=== PATIENT | female | born 1985 | race Caucasian/White ===

== ENCOUNTER → 2021-03-24 | Outpatient (CLI) | payer OTHER ==
[~2021-03-24] MED LIST: GASTROGRAFIN SOLUTION 30ML (Q9963) ONE; ISOVUE-370 76% 100ML VIAL ONE
--- NOTE | 2021-03-24 12:20 | REP ---
INDICATION: MIXED IBS. COMPARISON: 12/03/2012 TECHNIQUE: Axial contrast-enhanced images from the lung bases to the pubic symphysis using oral and 100 cc Isovue 370 intravenous contrast material. Delayed images of the abdomen along with coronal and sagittal reformations obtained. This CT examination was performed using the following dose reduction techniques: Automated exposure control, adjustment of mA and/or kv according to the patient's size, and the use of iterative reconstruction technique. FINDINGS: Liver demonstrates fatty infiltration without focal hepatic lesion. Evidence for prior cholecystectomy. Spleen, pancreas, gallbladder, bilateral adrenal glands and kidneys are normal.Incidental subcentimeter simple left renal cyst noted. The enteric system including stomach, small, and large bowel appears normal. No evidence for obstruction or acute inflammatory process. Normal terminal ileum and appendix are identified in the right lower quadrant. Few sigmoid diverticula noted without acute diverticulitis. Pelvis demonstrates normal bladder and evidence for prior hysterectomy. No ascites. No free air. No intraperitoneal or retroperitoneal adenopathy. Abdominal aorta and vasculature appear normal. Musculoskeletal structures are intact and without acute osseous abnormality. IMPRESSION: No acute abdominopelvic pathology appreciated. Hepatosteatosis. Few scattered sigmoid diverticula without acute diverticulitis. <Electronically signed by Antonio Pierre > 03/24/21 [id number]
== END ==
LOC: M PLAIMG 09:30
PROVIDERS: ATTEND Internal Medicine Gastroenterology
DX: K76.0 Fatty (change of) liver, not elsewhere classified (principal); K57.30 Diverticulosis of large intestine without perforation or abscess without bleeding; K58.2 Mixed irritable bowel syndrome; K56.601 Complete intestinal obstruction, unspecified as to cause
CPT/HCPCS: 74177; Q9963; Q9967

== ENCOUNTER 2023-02-05 13:23 | Day surgery (SDC) | payer OTHER ==
[~2023-02-05] VITALS: Ht 154.9 cm; Wt 94.4 kg
[~2023-02-05 13:23] MED LIST changes: +ACET325C5 PO; +AIMO70IN2; +FEXO-117; +FIOR1CAP PO; -GASTROGRAFIN SOLUTION 30ML (Q9963) ONE; +HYDR-3363; +IBUP80TA PO; -ISOVUE-370 76% 100ML VIAL ONE; +LEVO75TA4; +LEXA1TAB2 PO; +LIDOCAINE 2% 100MG/5ML SDV (FOR ANES.) As Ordered ONE; +LISI10TA22; +MIDAZOLAM INJ 2MG/2ML VIAL As Ordered ONE; +ONDA-84; +ONDANSETRON 4MG 2ML VIAL As Ordered ONE; +PANT20TA6; +ROCURONIUM BROMIDE 50MG/5ML VIAL As Ordered ONE; +TIZA2TA; +ceFAZolin SOD 2 GM in IV 1 EA IV ONE; +fentaNYL 100 MCG/2 ML INJECTION As Ordered ONE; +propofoL 200 MG/20 ML VIAL As Ordered ONE
[2023-02-05] MEDS ORDERED: KETOROLAC 60MG 2ML VIAL As Ordered ONE (13:26)
[2023-02-05 14:08] LABS: HEMATOCRIT 39.4 % (36.0-47.0); HEMOGLOBIN 13.6 g/dl (12.0-15.5); MEAN CORPUSCULAR HEMOGLOBIN 30.2 pg (27.0-33.0); MEAN CORPUSCULAR HGB CONC 34.5 g/dl (32.0-36.5); MEAN CORPUSCULAR VOLUME 87.6 fl (80.0-96.0); PLATELET COUNT, AUTOMATED 339 10^3/uL (150-450)
[2023-02-05] MEDS ORDERED: LR 1,000 ML IV SCH ×2 (14:15→18:10)
[2023-02-05] MEDS ORDERED: SCOPOLAMINE 1MG TRANSDERMAL PATCH As Ordered ONE (14:49)
[2023-02-05] MEDS ORDERED: ACETAMINOPHEN 1000MG 100ML IV BAG As Ordered ONE (16:26)
[2023-02-05] MEDS ORDERED: METOCLOPRAMIDE INJ 10MG/2ML VIAL As Ordered ONE (16:27)
[2023-02-05] MEDS ORDERED: METHYLENE BLUE 0.5% (5MG/ML) 10 ML AMP (PROVAYBLUE) As Ordered ONE (16:27)
[2023-02-05] MEDS ORDERED: fentaNYL 100 MCG/2 ML INJECTION As Ordered ONE ×2 (16:57→18:07)
[2023-02-05] MEDS ORDERED: GLYCOPYRROLATE INJ 0.2 MG/ML 2 ML VIAL As Ordered ONE (16:59)
[2023-02-05] MEDS ORDERED: ROCURONIUM BROMIDE 50MG/5ML VIAL As Ordered ONE (17:18)
[2023-02-05] MEDS ORDERED: PERC5TAB12 PO (18:03)
[2023-02-05] MEDS ORDERED: IBUP1TAB7 PO (18:04)
[2023-02-05] MEDS ORDERED: COLA100C5 PO (18:05)
[2023-02-05] MEDS ORDERED: ONDA4TAB6 PO (18:05)
[2023-02-05] MEDS ORDERED: ONDANSETRON 4MG 2ML VIAL IV PRN (18:10)
[2023-02-05] MEDS ORDERED: fentaNYL 100 MCG/2 ML INJECTION IV PRN (18:10)
[2023-02-05] MEDS: oxyCODONE 5MG TAB PO PRN ×2 (18:24→18:54)
[2023-02-05] MEDS: HYDROMORPHONE HCL 0.5 MG/ 0.5 ML SYRINGE IV PRN ×4 (18:25→18:49)
[2023-02-05] MEDS ORDERED: HYDROmorphone HCL 2MG/ML 1ML VIAL As Ordered ONE (19:26)
[2023-02-05 19:30] VITALS: BP 123/70; TEMP 97.5; O2SAT 98
[2023-02-05] MEDS ORDERED: SUGAMMADEX SODIUM 500 MG/5 ML VIAL (BRIDION) As Ordered ONE (19:36)
== END 2023-02-05 19:39 | disposition home or self-care (01) ==
LOC: M SDC 13:23
PROVIDERS: ATTEND Obstetrics & Gynecology
DX: N80.329 Endometriosis of the posterior cul-de-sac, unspecified depth (principal); N83.12 Corpus luteum cyst of left ovary; N83.292 Other ovarian cyst, left side; R10.2 Pelvic and perineal pain; N73.6 Female pelvic peritoneal adhesions (postinfective); E06.3 Autoimmune thyroiditis; E78.00 Pure hypercholesterolemia, unspecified; K76.0 Fatty (change of) liver, not elsewhere classified; Z79.899 Other long term (current) drug therapy; Z79.890 Hormone replacement therapy; Z90.710 Acquired absence of both cervix and uterus; Z87.891 Personal history of nicotine dependence; Z88.5 Allergy status to narcotic agent; Z88.8 Allergy status to other drugs, medicaments and biological substances
CPT/HCPCS: 36415; 58661; 85027; 86850; 86900; 86901; 88305; J0131; J0665; J0690; J1100; J1170; J1885; J2250; J2405; J2765; J3010; Q9968; S2900